=== PATIENT | male | born 1990 | race Caucasian/White ===

== ENCOUNTER 2017-09-21 08:52 | Emergency (ER) | payer SELFPAY ==
[2017-09-21] MEDS ORDERED: ONDANSETRON 4 MG TAB.RAPDIS PO ONE (09:36)
[2017-09-21] MEDS ORDERED: NORMAL SALINE 1000 ML 1,000 ML IV ONE (09:36)
--- NOTE | 2017-09-21 09:41 | ER Document Report ---
ED General - General Chief Complaint: Vomiting/Diarrhea Stated Complaint: DIZZY,VOMITING Time Seen by Provider: 09/21/17 09:34 - HPI Patient complains to provider of: Nausea vomiting dizziness Notes: Patient coming for nausea vomiting dizziness ongoing since Thursday. Patient states vomiting multiple times a coworkers at work also vomiting. Patient denies any recent antibiotics denies any recent travel. Patient resting comfortably upon my evaluation states dizziness when moving around. Patient otherwise looks to be in no obvious distress. - Related Data Allergies/Adverse Reactions: naproxen [From Naprosyn] Allergy (Verified 09/21/17 08:55) Past Medical History - Social History Smoking Status: Current Every Day Smoker Chew tobacco use (# tins/day): No Frequency of alcohol use: None Drug Abuse: None Family History: Reviewed & Not Pertinent Patient has suicidal ideation: No Patient has homicidal ideation: No Renal/ Medical History: Denies: Hx Peritoneal Dialysis Review of Systems - Review of Systems Constitutional: No symptoms reported EENT: No symptoms reported Cardiovascular: No symptoms reported Respiratory: No symptoms reported Gastrointestinal: Diarrhea, Nausea - Dizziness, Vomiting Genitourinary: No symptoms reported Male Genitourinary: No symptoms reported Musculoskeletal: No symptoms reported Skin: No symptoms reported Hematologic/Lymphatic: No symptoms reported Neurological/Psychological: No symptoms reported -: Yes All other systems reviewed and negative Physical Exam - Vital signs Vitals: Temp Pulse Resp BP Pulse Ox 97.9 F 83 18 155/94 H 100 09/21/17 08:57 09/21/17 08:57 09/21/17 08:57 09/21/17 08:57 09/21/17 08:57 Interpretation: Normal - General General appearance: Appears well, Alert - HEENT Head: Normocephalic, Atraumatic Eyes: Normal Pupils: PERRL - Respiratory Respiratory status: No respiratory distress Chest status: Nontender Breath sounds: Normal Chest palpation: Normal - Cardiovascular Rhythm: Regular Heart sounds: Normal auscultation Murmur: No - Abdominal Inspection: Normal Distension: No distension Bowel sounds: Normal Tenderness: Nontender Organomegaly: No organomegaly - Back Back: Normal, Nontender - Extremities General upper extremity: Normal inspection, Nontender, Normal color, Normal ROM , Normal temperature General lower extremity: Normal inspection, Nontender, Normal color, Normal ROM , Normal temperature, Normal weight bearing. No: Gladis's sign - Neurological Neuro grossly intact: Yes Cognition: Normal Orientation: AAOx4 Milli Coma Scale Eye Opening: Spontaneous Milli Coma Scale Verbal: Oriented Milli Coma Scale Motor: Obeys Commands [place] Coma Scale Total: 15 Speech: Normal Motor strength normal: LUE, RUE, LLE, RLE Sensory: Normal - Psychological Associated symptoms: Normal affect, Normal mood - Skin Skin Temperature: Warm Skin Moisture: Dry Skin Color: Normal Course - Re-evaluation Re-evalutation: 09/21/17 11:03 The patient presents with n/v/d without signs of peritonitis or other life- threatening or serious etiology. The patient appears stable for discharge and has been instructed to return immediately if the symptoms worsen in any way, or in 8-12hr if not improved for re-evaluation. The patient has been instructed to return if the symptoms worsen or change in any way. - Vital Signs Vital signs: Temp Pulse Resp BP Pulse Ox 98.5 F 76 16 139/99 H 100 09/21/17 11:07 09/21/17 11:07 09/21/17 11:07 09/21/17 11:07 09/21/17 11:07 - Laboratory Result Diagrams: 09/21/17 09:48 Laboratory results interpreted by me: 09/21/17 09:48 AST 61 H Total Protein 8.3 H Albumin 5.1 H Discharge - Discharge Clinical Impression: Nausea vomiting and diarrhea, Dehydration Condition: Good Disposition: HOME, SELF-CARE Instructions: Clear Liquid Diet ([facility]), Dehydration ([facility]), Dizziness ([facility]), Gastroenteritis (adult) ([facility]) Additional Instructions: Your evaluation is consistent with a viral GI illness. Would recommend clear liquid diet for the next 12 hours then advancing as tolerated would recommend eating yogurt to help out with the diarrhea. Return to ER symptoms worsen. I will prescribe you Zofran for your nausea and Phenergan you do not have to get both of these filled try 1 the other one is for backup. Would recommend taking Tylenol Motrin for pain control. Follow-up with your primary care physician. Prescriptions: Ondansetron [Zofran Odt 4 mg Tablet] 4 mg PO Q4HP PRN #30 tab.rapdis PRN Reason: Promethazine HCl [Phenergan 25 mg Tablet] 25 - 50 mg PO ASDIR PRN #30 tablet PRN Reason: Forms: Return to Work
[2017-09-21 11:00] LABS: ALANINE AMINOTRANSFERASE 35 U/L (21-72); ALBUMIN 5.1 g/dL (3.5-5.0); ALKALINE PHOSPHATASE 71 U/L (38-126); ANION GAP 13 (5-19); ASPARTATE AMINO TRANSFERASE 61 U/L (17-59); BILIRUBIN,DIRECT 0.4 mg/dL (0.0-0.4); BILIRUBIN,TOTAL 0.9 mg/dL (0.2-1.3); BLOOD UREA NITROGEN 15 mg/dL (7-20); CALCIUM 9.9 mg/dL (8.4-10.2); CARBON DIOXIDE 26 mmol/L (22-30); CHLORIDE 104 mmol/L (98-107); GLUCOSE 93 mg/dL (75-110); LIPASE 120.7 U/L (23-300); POTASSIUM 4.4 mmol/L (3.6-5.0); SODIUM 142.6 mmol/L (137-145); TOTAL PROTEIN 8.3 g/dL (6.3-8.2)
[2017-09-21 11:12] VITALS: BP 139/99
== END 2017-09-21 11:12 | disposition home or self-care (01) ==
LOC: ER 08:52
DX: R11.2 Nausea with vomiting, unspecified (principal); R19.7 Diarrhea, unspecified; E86.0 Dehydration; R42 Dizziness and giddiness; F17.200 Nicotine dependence, unspecified, uncomplicated; Z88.8 Allergy status to other drugs, medicaments and biological substances
CPT/HCPCS: 99284; 96360; 36415; 83690; 80053; S0119; J7030

== ENCOUNTER 2018-12-23 07:51 | Emergency (ER) | payer SELFPAY ==
--- NOTE | 2018-12-23 08:52 | ER Document Report ---
ED General - General Chief Complaint: Rib Pain Stated Complaint: LEFT SIDE RIB PAIN/INJURY Time Seen by Provider: 12/23/18 08:48 Primary Care Provider: CHIP JORDAN MD [ACTIVE PROVISIONAL STAFF] - Follow up as needed YOUNG BUSH MD [COMMUNITY BASED STAFF] - Follow up as needed Mode of Arrival: Ambulatory Information source: Patient - HPI Notes: the tthe "28 yr old male presents for c/o of left sided rib pain x 5 days ago after a friend, who weights approx 180 pounds landed on him after play wrestling, reports friends elbow hit in his the rib on the left. reports pain with deep breaths, sneezing or coughing. no otc meds tried. denies bleeding disorders. pain is 6/10, sharp and worse with time. has not followed up with his pcp. Denies fevers, chills, chest pain,palpitations, shortness of breath, dyspnea, nausea, vomiting, diarrhea, abdominal pain, hematuria,blurred vision, double vision, loss of vision, speech changes, LH, dizziness, syncope, headaches, wheezing, ST, URI, neck pain, weakness, bowel or bladder dysfunction, saddle anesthesia, numbness or tingling in bilateral upper or lower extremities equally, muscle paralysis, weakness in bilateral upper or lower extremities equally or rash. - Related Data Allergies/Adverse Reactions: naproxen [From Naprosyn] Allergy (Verified 09/21/17 08:55) Past Medical History - General Information source: Patient - Social History Smoking Status: Unknown if Ever Smoked Lives with: Spouse/Significant other Family History: Reviewed & Not Pertinent Patient has suicidal ideation: No Patient has homicidal ideation: No Renal/ Medical History: Denies: Hx Peritoneal Dialysis Review of Systems - Review of Systems Constitutional: No symptoms reported EENT: No symptoms reported Cardiovascular: No symptoms reported Respiratory: See HPI Gastrointestinal: No symptoms reported Genitourinary: No symptoms reported Male Genitourinary: No symptoms reported Musculoskeletal: No symptoms reported Skin: No symptoms reported Hematologic/Lymphatic: No symptoms reported Neurological/Psychological: No symptoms reported Physical Exam - Vital signs Vitals: Temp Pulse Resp BP Pulse Ox 98.2 F 91 16 134/94 H 98 12/23/18 07:58 12/23/18 07:58 12/23/18 07:58 12/23/18 07:58 12/23/18 07:58 - Notes Notes: PHYSICAL EXAMINATION:reviewed vital signs by RN GENERAL: Well-appearing, well-nourished and in no acute distress. HEAD: Atraumatic, normocephalic. EYES: Pupils equal round and reactive to light, extraocular movements intact, sclera anicteric, conjunctiva are normal. ENT: Nares patent, oropharynx clear without exudates. Moist mucous membranes. NECK: Normal range of motion, supple without lymphadenopathy LUNGS: Breath sounds clear to auscultation bilaterally and equal. No wheezes rales or rhonchi. tenderness to left 5th-8th rib intercostal area. no ecchymosis, step off noted. HEART: Regular rate and rhythm without murmurs ABDOMEN: Soft, nontender, nondistended abdomen. No guarding, no rebound. No masses appreciated. no cva tenderness bilaterally Musculoskeletal: Normal range of motion, no pitting or edema. No cyanosis. NEUROLOGICAL: Cranial nerves grossly intact. Normal speech, normal gait. Normal sensory, motor exams PSYCH: Normal mood, normal affect. SKIN: Warm, Dry, normal turgor, no rashes or lesions noted. Course - Re-evaluation Re-evalutation: 12/23/18 19:28 afebrile, vss, in no acute distress. nurses notes reviewed. Patient presents after falling onto their ribs, complaining of focal pain to the affected area. No tachypnea or hypoxemia at time of arrival. Pain controlled here in the emergency department with oral pain medication Chest x-ray without evidence of acute fracture, pneumothorax or pulmonary contusion. labs obtained since pt states that he has hasnt been eating as much due to pain, but did not want to be prescribed narcotics. cbc negative for leukocytosis or anemai, cmp negative for renal or liver dysfuction, no electrolyte disburbances, cogas normal. At this time will discharge with return precautions and follow-up recommendations. Verb al discharge instructions given at the bedside and opportunity for questions given. Medication warnings reviewed. Patient is in agreement with this plan and has verbalized understanding of return precautions and the need for primary care follow-up in the next 24-72 hours. - Vital Signs Vital signs: Temp Pulse Resp BP Pulse Ox 98.1 F 90 16 122/88 H 98 12/23/18 11:32 12/23/18 11:32 12/23/18 07:58 12/23/18 11:32 12/23/18 11:32 - Laboratory Result Diagrams: 12/23/18 09:30 12/23/18 09:30 Laboratory results interpreted by me: 12/23/18 12/23/18 09:30 09:30 Baso % (Auto) 2.5 H AST 83 H Discharge - Discharge Clinical Impression: Acute costochondritis, Rib contusion Condition: Stable Disposition: HOME, SELF-CARE Instructions: Costochondritis ([facility]), Rib Contusion ([facility]) Additional Instructions: Return immediately for any new or worsening symptoms. Follow up with primary care provider, call tomorrow to make followup appointment. Prescriptions: Acetaminophen [Pain Relief] 975 mg PO Q6HP PRN #20 tablet PRN Reason: Forms: Return to Work Referrals: YOUNG BUSH MD [COMMUNITY BASED STAFF] - Follow up as needed CHIP JORDAN MD [ACTIVE PROVISIONAL STAFF] - Follow up as needed
--- NOTE | 2018-12-23 09:39 | RADIOLOGY REPORT (SQ) ---
EXAM DESCRIPTION: RIBS LEFT W/PA CHEST COMPLETED DATE/TIME: 12/23/2018 9:20 am REASON FOR STUDY: bone tenderness COMPARISON: None. TECHNIQUE: Frontal view of the chest and additional views of the left ribs acquired. NUMBER OF VIEWS: Five view. LIMITATIONS: None. FINDINGS: FRONTAL CXR: No pneumothorax. No pleural effusion. No atelectasis or infiltrates. RIBS: No displaced rib fractures. No lytic or blastic bony lesions. OTHER: No other significant finding. IMPRESSION: NO PNEUMOTHORAX. NO DISPLACED RIB FRACTURES. COMMENT: SITE OF TRAUMA/COMPLAINT MARKED/STAMP COMPLETED: NO. TECHNICAL DOCUMENTATION: JOB ID: [id number] [employer]- All Rights Reserved Reading location - IP/workstation name: [email or web address]
[2018-12-23 09:42] LABS: ABSOLUTE BASOPHILS # (AUTO) 0.1 10^3/uL (0.0-0.2); ABSOLUTE EOSINOPHILS # (AUTO) 0.2 10^3/uL (0.0-0.6); ABSOLUTE LYMPHOCYTES (AUTO) 1.1 10^3/uL (0.5-4.7); ABSOLUTE MONOCYTES (AUTO) 0.6 10^3/uL (0.1-1.4); ABSOLUTE NEUT (AUTO) 2.8 10^3/uL (1.7-8.2); BASOPHILS % (AUTO) 2.5 % (0-2); EOSINOPHILS % (AUTO) 4.3 % (0-6); HEMATOCRIT 46.5 % (37.9-51.0); HEMOGLOBIN 15.8 g/dL (13.5-17.0); LYMPHOCYTES % (AUTO) 22.7 % (13-45); MEAN CORPUSCULAR HEMOGLOBIN 31.9 pg (27.0-33.4); MEAN CORPUSCULAR VOLUME 94 fl (80-97); MONOCYTES % (AUTO) 12.9 % (3-13); PLATELET COUNT 233 10^3/uL (150-450); RED BLOOD COUNT 4.95 10^6/uL (4.35-5.55); RED CELL DISTRIBUTION WIDTH 12.9 % (11.5-14.0); SEGMENTED NEUTROPHILS % (AUTO) 57.6 % (42-78); TOTAL CELLS COUNTED % (AUTO) 100 %; WHITE BLOOD COUNT 4.8 10^3/uL (4.0-10.5)
[2018-12-23 09:45] LABS: INTERNATIONAL RATION (INR) 0.93; PROTHROMBIN TIME 12.5 SEC (11.4-15.4)
[2018-12-23 09:46] LABS: PARTIAL THROMBOPLASTIN TIME 27.8 SEC (23.5-35.8)
[2018-12-23 10:02] LABS: ALBUMIN 4.7 g/dL (3.5-5.0); ALKALINE PHOSPHATASE 73 U/L (38-126); ANION GAP 11 (5-19); ASPARTATE AMINO TRANSFERASE 83 U/L (17-59); BILIRUBIN,DIRECT 0.2 mg/dL (0.0-0.4); BILIRUBIN,TOTAL 0.9 mg/dL (0.2-1.3); BLOOD UREA NITROGEN 13 mg/dL (7-20); CALCIUM 9.9 mg/dL (8.4-10.2); CARBON DIOXIDE 26 mmol/L (22-30); CHLORIDE 101 mmol/L (98-107); GLUCOSE 86 mg/dL (75-110); POTASSIUM 4.2 mmol/L (3.6-5.0); TOTAL PROTEIN 7.3 g/dL (6.3-8.2)
[2018-12-23] MEDS ORDERED: HYDROCODONE/ACETAMINOPHEN 5-325 MG (6 TAB/ER DISP) PO PRN (11:26)
[2018-12-23] MEDS ORDERED: ACETAMINOPHEN 325 MG TABLET PO ONE (11:27)
[2018-12-23 11:35] VITALS: BP 122/88
== END 2018-12-23 11:45 | disposition home or self-care (01) ==
LOC: ER 07:51
DX: S20.20XA Contusion of thorax, unspecified, initial encounter (principal); M94.0 Chondrocostal junction syndrome [Tietze]; R07.81 Pleurodynia; W50.0XXA Accidental hit or strike by another person, initial encounter; Y93.72 Activity, wrestling; Z88.8 Allergy status to other drugs, medicaments and biological substances
CPT/HCPCS: 36415; 80053; 85025; 85610; 85730; 99283

== ENCOUNTER 2019-02-24 12:47 | Emergency (ER) | payer SELFPAY ==
[2019-02-24 12:51] VITALS: BP 115/99
== END 2019-02-24 13:00 | disposition left against medical advice (07) ==
LOC: ER 12:47
DX: Z53.21 Procedure and treatment not carried out due to patient leaving prior to being seen by health care provider (principal)

== ENCOUNTER 2019-03-14 12:40 | Observation (INO) | payer SELFPAY ==
[~2019-03-14 12:40] MED LIST: DEXAMETHASONE SOD PHOSPHATE INJ 4 MG/1 ML VIAL ONE; GLYCOPYRROLATE 1 MG/5 ML VIAL ONE; KETOROLAC TROMETHAMINE 60 MG/2 ML SDV ONE; LIDOCAINE 2% INJ-PF (20 MG/ML) 2 ML AMPUL ONE; METOCLOPRAMIDE HCL INJ/PF 10 MG/2 ML SDV ONE; NEOSTIGMINE METHYLSULFATE 10 MG/10 ML VIAL ONE; ONDANSETRON HCL INJ/PF 4 MG/2 ML SDV ONE; ROCURONIUM BROMIDE INJ 50 MG/5 ML VIAL IV ONE; SUCCINYLCHOLINE CHLORIDE INJ 200 MG/10 ML VIAL ONE
[2019-03-14] MEDS ORDERED: ONDANSETRON HCL INJ/PF 4 MG/2 ML SDV IV ONE (13:09)
[2019-03-14] MEDS ORDERED: MORPHINE SULFATE 10 MG/ML INJ IV ONE (13:09)
--- NOTE | 2019-03-14 13:09 | ER Document Report ---
ED Medical Screen (RME) - General Chief Complaint: Abdominal Pain Stated Complaint: ABDOMINAL PAIN Time Seen by Provider: 03/14/19 13:05 - HPI Notes: 03/14/19 13:08 Patient is a 28-year-old male complaining of severe right upper quadrant abdominal pain that he believes his gallbladder. Patient states he was told that his gallbladder issues, but has not been able to afford medications that he was given at a previous hospital for it. Patient states that he has had nausea and vomiting and decreased p.o. intake. No fever. I have treated and performed a rapid initial assessment of this patient. A comprehensive ED assessment and evaluation of the patient, analysis of test results and completion of medical decision making process will be conducted by additional ED providers. PHYSICAL EXAMINATION: GENERAL: no acute distress. A&Ox4. Answers questions appropriately. Patient does appear uncomfortable. Abdomen: There is tenderness noted to the epigastrium and right upper quadrant. - Related Data Allergies/Adverse Reactions: naproxen [From Naprosyn] Allergy (Verified 03/14/19 13:07) Past Medical History Renal/ Medical History: Denies: Hx Peritoneal Dialysis Physical Exam - Vital signs Vitals: Temp Pulse Resp BP Pulse Ox 98.0 F 92 20 147/111 H 100 03/14/19 12:57 03/14/19 12:57 03/14/19 12:57 03/14/19 12:57 03/14/19 12:57 Course - Vital Signs Vital signs: Temp Pulse Resp BP Pulse Ox 98.0 F 92 20 147/111 H 100 03/14/19 12:57 03/14/19 12:57 03/14/19 12:57 03/14/19 12:57 03/14/19 12:57
[2019-03-14] MEDS ORDERED: NORMAL SALINE 1000 ML 1,000 ML IV ONE (13:10)
[2019-03-14] MEDS ORDERED: ONDANSETRON HCL INJ/PF 4 MG/2 ML SDV ONE (13:26)
--- NOTE | 2019-03-14 13:51 | ER Document Report ---
ED GI/ - General Chief Complaint: Abdominal Pain Stated Complaint: ABDOMINAL PAIN Time Seen by Provider: 03/14/19 13:05 Primary Care Provider: DEB KAUR MD [Primary Care Provider] - Follow up as needed Notes: CHIEF COMPLAINT: Right Upper quadrant pain HPI: 28-year-old male presenting to the emergency department for evaluation of severe right upper quadrant pain. Patient states he has had a constant level of discomfort in the right upper quadrant of the last several months, much worse with eating. Patient states he has lost 15 pounds in the last several months. Patient states the pain became worse in the last week, he went to the emergency department in [place], states they did an ultrasound that was negative for stones but his liver enzymes were all elevated. Patient states the pain became much worse again today causing him to present to the emergency department. He did not follow-up with gastroenterology after his visit to [place]. has not had fever. Patient states that he also has a history of high blood pressure, takes clonidine as needed for this. Does not have chest pain ROS: See HPI - all other systems were reviewed and are otherwise negative Constitutional: no fever Eyes: no drainage, no blurred vision ENT: no runny nose, no sore throat Cardiovascular: no chest pain Resp: no SOB, no cough GI: + vomiting, no diarrhea, + abdominal pain : no dysuria Integumentary: no rash Allergy: no hives Musculoskeletal: no extremity pain or swelling Neurological: no numbness/tingling, no weakness MEDICATIONS: I agree with the patient medications as charted by the RN. ALLERGIES: I agree with the allergies as charted by the RN. PAST MEDICAL HISTORY/PAST SURGICAL HISTORY: Reviewed and agree as charted by RN. SOCIAL HISTORY: Reviewed and agree as charted by RN. FAMILY HISTORY: No significant familial comorbid conditions directly related to patient complaint EXAM: Reviewed vital signs as charted by RN. CONSTITUTIONAL: Alert and oriented and responds appropriately to questions. Well-appearing; well-nourished, moderate distress secondary to pain HEAD: Normocephalic; atraumatic EYES: PERRL; Conjunctivae clear, sclerae non-icteric ENT: normal nose; no rhinorrhea; moist mucous membranes; pharynx without lesions noted, no uvula edema or deviation, no tonsillar hypertrophy, phonation normal NECK: Supple without meningismus; non-tender; no cervical lymphadenopathy, no masses CARD: RRR; no murmurs, no clicks, no rubs, no gallops; symmetric distal pulses RESP: Normal chest excursion without splinting or tachypnea; breath sounds clear and equal bilaterally; no wheezes, no rhonchi, no rales, pulse oximetry ABD/GI: Normal bowel sounds; non-distended; soft, moderate tenderness with guarding in the right upper quadrant, positive Joseph sign; no palpable organomegaly or masses. BACK: The back appears normal and is non-tender to palpation, there is no CVA tenderness EXT: Normal ROM in all joints; non-tender to palpation; no cyanosis, no effusions, no edema SKIN: Normal color for age and race; warm; dry; good turgor; no acute lesions noted NEURO: Moves all extremities equally; Motor and sensory function intact PSYCH: The patient's mood and manner are appropriate. Grooming and personal hygiene are appropriate. MDM: 28-year-old male presenting with several months of right upper quadrant pain especially with eating. States he had negative imaging study of the right upper quadrant a week ago at [place] emergency department. States his liver functions were elevated. Patient screened through the triage process, initial labs and repeat ultrasound ordered today. Pain medications and nausea medications ordered. Will await results to reassess, patient may need HIDA scan. discussed with Dr. Holloway, ER attending TRAVEL OUTSIDE OF THE [place] IN LAST 30 DAYS: No - Related Data Allergies/Adverse Reactions: naproxen [From Naprosyn] Allergy (Verified 03/14/19 13:07) Past Medical History - Social History Smoking Status: Current Every Day Smoker Chew tobacco use (# tins/day): No Frequency of alcohol use: Occasional Drug Abuse: None Family History: Reviewed & Not Pertinent Patient has suicidal ideation: No Patient has homicidal ideation: No Renal/ Medical History: Denies: Hx Peritoneal Dialysis Physical Exam - Vital signs Vitals: Temp Pulse Resp BP Pulse Ox 98.0 F 92 20 147/111 H 100 03/14/19 12:57 03/14/19 12:57 03/14/19 12:57 03/14/19 12:57 03/14/19 12:57 Course - Re-evaluation Re-evalutation: 03/14/19 15:09 Patient remains moderately uncomfortable on reexamination with tenderness in the right upper quadrant. Case discussed with attending, discussed with Dr. Hernandez, Surgery management. We discussed labs and imaging studies. He indicates that he will come down and see the patient to determine a management plan 03/14/19 15:[address] Hernandez. He will admit for cholecystectomy 03/14/19 15:46 - Vital Signs Vital signs: Temp Pulse Resp BP Pulse Ox 98.0 F 92 21 H 143/96 H 98 03/14/19 12:57 03/14/19 12:57 03/14/19 15:01 03/14/19 15:00 03/14/19 15:01 - Laboratory Result Diagrams: 03/14/19 13:45 03/14/19 13:45 Laboratory results interpreted by me: 03/14/19 03/14/19 13:45 13:45 RDW 14.2 H Sodium 135.2 L Chloride 97 L BUN 21 H Creatinine 1.27 H Calcium 10.3 H Total Bilirubin 1.6 H Direct Bilirubin 0.7 H AST 192 H Alkaline Phosphatase 143 H Discharge - Discharge Clinical Impression: Cholecystitis Condition: Stable Disposition: ADMITTED INPATIENT Admitting Provider: Surgicalist - [facility] Admitted: Surgical Floor Referrals: DEB KAUR MD [Primary Care Provider] - Follow up as needed
[2019-03-14 13:58] LABS: ABSOLUTE BASOPHILS # (AUTO) 0.1 10^3/uL (0.0-0.2); ABSOLUTE LYMPHOCYTES (AUTO) 2.4 10^3/uL (0.5-4.7); ABSOLUTE MONOCYTES (AUTO) 0.8 10^3/uL (0.1-1.4); ABSOLUTE NEUT (AUTO) 4.7 10^3/uL (1.7-8.2); BASOPHILS % (AUTO) 1.5 % (0-2); EOSINOPHILS % (AUTO) 0.5 % (0-6); HEMATOCRIT 43.5 % (37.9-51.0); HEMOGLOBIN 15.4 g/dL (13.5-17.0); LYMPHOCYTES % (AUTO) 30.1 % (13-45); MEAN CORPUSCULAR HGB CONC 35.3 g/dL (32.0-36.0); MEAN CORPUSCULAR VOLUME 93 fl (80-97); MONOCYTES % (AUTO) 9.6 % (3-13); PLATELET COUNT 301 10^3/uL (150-450); RED BLOOD COUNT 4.66 10^6/uL (4.35-5.55); RED CELL DISTRIBUTION WIDTH 14.2 % (11.5-14.0); SEGMENTED NEUTROPHILS % (AUTO) 58.3 % (42-78); TOTAL CELLS COUNTED % (AUTO) 100 %
[2019-03-14 14:19] LABS: ALBUMIN 4.5 g/dL (3.5-5.0); ALKALINE PHOSPHATASE 143 U/L (38-126); ANION GAP 15 (5-19); ASPARTATE AMINO TRANSFERASE 192 U/L (17-59); BILIRUBIN,DIRECT 0.7 mg/dL (0.0-0.4); BILIRUBIN,TOTAL 1.6 mg/dL (0.2-1.3); BLOOD UREA NITROGEN 21 mg/dL (7-20); CALCIUM 10.3 mg/dL (8.4-10.2); CARBON DIOXIDE 23 mmol/L (22-30); CHLORIDE 97 mmol/L (98-107); GLUCOSE 90 mg/dL (75-110); POTASSIUM 4.5 mmol/L (3.6-5.0); TOTAL PROTEIN 8.1 g/dL (6.3-8.2)
--- NOTE | 2019-03-14 14:32 | RADIOLOGY REPORT (SQ) ---
EXAM DESCRIPTION: U/S ABDOMEN LIMITED W/O DOP COMPLETED DATE/TIME: 03/14/2019 2:18 pm REASON FOR STUDY: RUQ pain COMPARISON: None. TECHNIQUE: Dynamic and static grayscale images acquired of the abdomen and recorded on PACS. Additio nal selected color Doppler and spectral images recorded. LIMITATIONS: None. FINDINGS: PANCREAS: No masses. Visualized pancreatic duct normal caliber. LIVER: Normal size Mild fatty infiltration. No focal masses. LIVER VASCULATURE: Normal directional flow of the main portal vein and hepatic veins. GALLBLADDER: The gallbladder is slightly distended measured at 9.85 cm. No wall thickening. No ston es or pericholecystic edema. ULTRASOUND-DETECTED SAINZ'S SIGN: Negative. INTRAHEPATIC DUCTS AND COMMON DUCT: CBD and intrahepatic ducts normal caliber. No filling defects. AORTA: No aneurysm. RIGHT KIDNEY: Normal size. Normal echogenicity. No solid or suspicious masses. There is a simpl e cyst off the superior pole measured just under 2 cm. No hydronephrosis. No calcifications. PERITONEAL AND RIGHT PLEURAL SPACE: No ascites or effusions. OTHER: No other significant findings. IMPRESSION: NORMAL RIGHT UPPER QUADRANT ULTRASOUND VISUALIZED. TECHNICAL DOCUMENTATION: JOB ID: [id number] [employer]- All Rights Reserved Reading location - IP/workstation name: [email or web address]
[2019-03-14 15:45] LABS: APPEARANCE,URINE CLEAR; BILIRUBIN,URINE NEGATIVE (NEGATIVE); COLOR,URINE YELLOW; GLUCOSE, URINE NEGATIVE (NEGATIVE); KETONES,URINE NEGATIVE (NEGATIVE); PROTEIN,URINE 100 mg/dL (NEGATIVE); URINE SPECIFIC GRAVITY 1.024; UROBILINOGEN,URINE NEGATIVE mg/dL (<2.0)
--- NOTE | 2019-03-14 15:59 | PDOC H&P ---
History of Present Illness Admission Date/PCP: DEB KAUR MD Patient complains of: Abdominal pain History of Present Illness: TANIA MEDINA is a 28 year old male Presents emergency department via ground rescue complaining of abdominal pain, nausea, anorexia and diarrhea. Symptoms have been exacerbating over the last several weeks. In retrospect the patient is been having abdominal pain right upper quadrant for months. He was seen at [facility] in January, [place] emergency department earlier this month for similar symptoms. He was told he had elevated liver function studies. Multiple gallbladder ultrasounds were interpreted as normal, no gallstones. He is seen today the emergency department he is found to have right upper quadrant tenderness, pain refractory to narcotics. Repeat ultrasound showed a dilated gallbladder, normal biliary duct system. Liver function studies slightly elevated. Surgery was consulted, patient evaluated emergency department, felt to have acute cholecystitis and was advised admission for definitive management. Of note patient denies history of pancreatitis. He does drink alcohol every other day. Past Medical History Past Medical History: Take care hypertension, uncontrolled; alcohol use; anxiety and depression Cardiac Medical History: Reports: Hypertension Past Surgical History Past Surgical History: Reports: Tonsillectomy Social History Smoking Status: Current Every Day Smoker Electronic Cigarette use?: No Family History Family History: None, Reviewed & Not Pertinent, Other - Gallbladder disease in father Parental Family History Reviewed: Yes Children Family History Reviewed: Yes Sibling(s) Family History Reviewed.: Yes Medication/Allergy Allergies/Adverse Reactions: naproxen [From Naprosyn] Allergy (Verified 03/14/19 13:07) Review of Systems Constitutional: PRESENT: as per HPI, weakness, weight loss - 15 pounds last several months Eyes: ABSENT: visual disturbances Ears: PRESENT: other - Has ear hardware known as gauges Respiratory: PRESENT: cough Gastrointestinal: PRESENT: as per HPI, other - Loose bowel movements, chronic Genitourinary: ABSENT: dysuria, hematuria Musculoskeletal: PRESENT: muscle weakness Integumentary: ABSENT: rash, wounds Neurological: ABSENT: abnormal gait, abnormal speech, confusion, dizziness, focal weakness, syncope Psychiatric: ABSENT: anxiety, depression, homidical ideation, suicidal ideation Physical Exam Vital Signs: Temp Pulse Resp BP Pulse Ox 98.0 F 92 21 H 143/96 H 98 03/14/19 12:57 03/14/19 12:57 03/14/19 15:01 03/14/19 15:00 03/14/19 15:01 Intake & Output 03/13/19 03/14/19 03/15/19 06:59 06:59 06:59 Intake Total 1000 Balance 1000 Weight 73.6 kg General appearance: PRESENT: other - Very anxious thin male in moderate distress Head exam: PRESENT: atraumatic Eye exam: PRESENT: EOMI Mouth exam: PRESENT: dry mucosa Neck exam: PRESENT: full ROM Respiratory exam: PRESENT: rhonchi Cardiovascular exam: PRESENT: tachycardia Pulses: PRESENT: normal carotid pulses, normal radial pulses, normal femoral pulses GI/Abdominal exam: PRESENT: other - Soft, but tender right upper quadrant with moderate guarding Rectal exam: PRESENT: deferred Extremities exam: PRESENT: full ROM Musculoskeletal exam: PRESENT: full ROM Neurological exam: PRESENT: oriented to person, oriented to place, oriented to time, oriented to situation Psychiatric exam: PRESENT: anxious Skin exam: PRESENT: dry Results Laboratory Results: 03/14/19 13:45 03/14/19 13:45 03/14/19 03/14/19 13:45 13:45 WBC 8.0 RBC 4.66 Hgb 15.4 Hct 43.5 MCV 93 MCH 33.0 MCHC 35.3 RDW 14.2 H Plt Count 301 Seg Neutrophils % 58.3 Sodium 135.2 L Potassium 4.5 Chloride 97 L Carbon Dioxide 23 Anion Gap 15 BUN 21 H Creatinine 1.27 H Est GFR ( Amer) > 60 Glucose 90 Calcium 10.3 H Total Bilirubin 1.6 H AST 192 H Alkaline Phosphatase 143 H Total Protein 8.1 Albumin 4.5 Lipase 134.8 Impressions: Abdomen Ultrasound 03/14/19 13:09 IMPRESSION: NORMAL RIGHT UPPER QUADRANT ULTRASOUND VISUALIZED. Assessment & Plan - Diagnosis (1) Acute cholecystitis Is this a current diagnosis for this admission?: Yes Plan: Impression: Acute superimposed on chronic right upper quadrant pain, tenderness, weakness anorexia, elevated liver function studies and gallbladder ultrasonogra phy showing dilated gallbladder consistent with acute cholecystitis. Patient also dehydrated. Elevated liver function studies may be secondary to underlying liver dysfunction, or even retained common bile duct stone, the latter less likely. Recommendations: 1. Will admit, keep n.p.o. on IV fluids intravenous antibiotics 2. I believe the patient is suffering from cholecystitis and would benefit from interval cholecystectomy. Therefore we plan for interval laparoscopic, open cholecystectomy possible, with intraoperative cholangiography, Dr. Hernandez, today. The mechanics of the operation, as well as an explanation for the risk benefits and alternatives, as well as likely postoperative expectations all discussed with patient and significant other. 3. Patient understands that symptoms and laboratory abnormalities may be due to underlying liver disease, or even a retained common bile duct stone, although less likely. Patient will intervention may be required 4. I have consulted hospitalist service to assist with management of hypertension, historically uncontrolled, and anxiety and depression as needed. (2) Hypertension, uncontrolled Is this a current diagnosis for this admission?: Yes (3) Dehydration Is this a current diagnosis for this admission?: Yes (4) Abuse of smoked substance Is this a current diagnosis for this admission?: Yes (5) Alcohol abuse Is this a current diagnosis for this admission?: Yes (6) Elevated LFTs Is this a current diagnosis for this admission?: Yes (7) Anxiety Is this a current diagnosis for this admission?: Yes (8) Depression Is this a current diagnosis for this admission?: Yes - Time Time Spent: 50 to 70 Minutes Critical Time spent with patient: 15-24 minutes Medications reviewed and adjusted accordingly: Yes Anticipated discharge: Home - Inpatient Certification Based on my medical assessment, after consideration of the patient's comorbidities, presenting symptoms, or acuity I expect that the services needed warrant INPATIENT care.: Yes I certify that my determination is in accordance with my understanding of Medicare's requirements for reasonable and necessary INPATIENT services [42 CFR 412.3e].: Yes Medical Necessity: Need For IV Fluids, Need for Pain Control, Need for IV Antibiotics, Need for Surgery
[2019-03-14] MEDS ORDERED: NORMAL SALINE 1000 ML 1,000 ML IV PRN (16:01)
[2019-03-14] MEDS ORDERED: BUPIVACAINE HCL 0.25 % INJ/PF (2.5 MG/1 ML) 30 ML VIAL ONE (16:02)
[2019-03-14] MEDS ORDERED: AMPICILLIN SOD/SULBACTAM 1.5 GM VIAL ONE (16:27)
[2019-03-14] MEDS ORDERED: HYDROMORPHONE HCL INJ/PF 2 MG/ML AMPULE ONE (16:37)
[2019-03-14] MEDS ORDERED: MIDAZOLAM 2 MG/2 ML INJ ONE (16:37)
[2019-03-14] MEDS ORDERED: PROPOFOL INJ 200 MG/20 ML VIAL IV ONE (16:38)
[2019-03-14] MEDS ORDERED: MEPERIDINE HCL/PF INJ 25 MG/1 ML DISP.SYRIN IV PRN (17:13)
[2019-03-14] MEDS ORDERED: FENTANYL CITRATE INJ/PF 100 MCG/2 ML AMPUL IV PRN ×3 (17:13)
[2019-03-14] MEDS ORDERED: OXYCODONE-ACETAMINOPHEN 5-325 MG TABLET PO PRN ×2 (17:13)
[2019-03-14] MEDS ORDERED: ONDANSETRON HCL INJ/PF 4 MG/2 ML SDV IV PRN ×2 (17:13→18:01)
[2019-03-14] MEDS ORDERED: DIPHENHYDRAMINE HCL 50 MG/ML VIAL IV PRN (17:13)
[2019-03-14] MEDS ORDERED: PROMETHAZINE HCL INJ 25 MG/1 ML VIAL IV PRN ×2 (17:13)
--- NOTE | 2019-03-14 17:59 | Operative Report ---
Operative Report DATE OF SURGERY: 03/14/19 PREOPERATIVE DIAGNOSIS: 1. Acute cholecystitis. 2. Elevated liver function s tudies. 3. History of smoking, alcohol POSTOPERATIVE DIAGNOSIS: Same with. 1. Mild-moderate acute cholecystitis. 2. Normal intraoperative cholangiogram OPERATION: 1. Laparoscopic cholecystectomy. 2. Intraoperative cholangiography. 3. Interpretation of intraoperative cholangiography SURGEON: PAULIE INIGUEZ ANESTHESIA: GA TISSUE REMOVED OR ALTERED: 1 gallbladder COMPLICATIONS: None ESTIMATED BLOOD LOSS: Scant INTRAOPERATIVE FINDINGS: See below PROCEDURE: After obtaining informed consent, the patient was taken to the operating room. General Anesthesia was induced; the arms were extended, and the abdomen was exposed, and prepped and draped in a sterile fashion. Instrumentation was set up for laparoscopic cholecystectomy. Surgical plan and surgical timeout were conducted. A vertical incision was made above the umbilicus, and a verres needle was inserted uneventfully into the peritoneal cavity. Pneumoperitoneum was established. The verres needle was removed and a 5 mm trocar was inserted and a 5 mm flexible laparoscope was inserted. Visualization of the peritoneal cavity confirmed safe uneventful entry. Under direct visualization 3 additional 5 mm ports were established, one in the subxiphoid position and second in the subcostal position. We utilized the graspers to mobilize the gallbladder. Because of the positioning of the gallbladder under the right lobe of the liver with poor exposure to the infundibulum, I felt that a top-down approach would be safest and least troublesome. Therefore we repositioned our graspers, and using the hook dissector, with moderate level of heat, took the gallbladder off of the inferior surface of the liver uneventfully all the way down to the point of its connection with the cystic duct. The cystic artery was dissected out with a right angle clamp, photographed, clipped twice proximally once distally and divided with scissors. Gallbladder was suspended solely by the cystic duct. All final attachments around the junction between the cystic duct and the infundibulum were taken down. A clip was placed across the cystic duct at its point of origination from the gallbladder. An opening was made in the cystic duct with scissors. A tate was made in the skin in the subxiphoid position with 11 blade, and the percutaneous cholangiogram catheter and stylette were threaded through the intra-abdominal wall. The stylette was removed, and the cholangiogram catheter was inserted into the cystic duct aiming it proximally. It was clipped into position, and all instruments were removed We leveled the patient and brought the fluoroscopy unit into position. 10 cc of full-strength iso-view was instilled into the cystic duct. Intraoperative fluoroscopy demonstrated excellent opacification of the common bile duct, common hepatic duct, right and left hepatic ducts. There was no evidence of bile leak. The caliber of the common bile duct was felt to be within normal limits. Co ntrast into the duodenum without resistance. There were no opacities within the biliary duct system. We [place] that this represented a normal cholangiogram. We returned to the peritoneal cavity, removed the clip retaining the cholangiogram catheter, remove the cholangiogram catheter, clipped the cystic duct proximally 2 times, then divided the cystic duct with scissors. The gallbladder was removed from the patient uneventfully at the supraumbilical port site wound. There was no spillage of bile. We returned to the peritoneal cavity check for bleeding, and evidence of bile leak, and there was none. We Confirmed satisfactory placement of clips on cystic duct and cystic artery were secured . At this point we felt the operation was complete. The subcutaneous tissue was then anesthetized with quarter percent Marcaine Sponge and needle counts are correct. All ports removed under direct visualization pneumoperitoneum evacuated, the supraumbilical fascial defect was closed with 0 Vicryl suture and 5 mm port wounds closed with 3-0 Vicryl suture, benzoin and Steri-Strips. The patient was extubated, and taken to the recovery room in stable condition.
--- NOTE | 2019-03-14 17:59 | RADIOLOGY REPORT (SQ) ---
EXAM DESCRIPTION: CHOLANGIOGRAM OPERATIVE; NO CHG FLUORO COMPLETED DATE/TIME: 03/14/2019 5:47 pm REASON FOR STUDY: CHOLANGIOGRAM COMPARISON: None. FLUOROSCOPY TIME: 0.1 minute. 2 images saved to PACS. TECHNIQUE: 2 images were obtained from an intraoperative cholangiogram. LIMITATIONS: None. FINDINGS: There is opacification of the bile ducts, cystic duct remnants and second portion of the d uodenum without evidence of fixed filling defect or significant extravasation. IMPRESSION: INTRAOPERATIVE CHOLANGIOGRAM. COMMENT: Quality ID 145: Final reports for procedures using fluoroscopy that document radiation exp osure indices, or exposure time and number of fluorographic images (if radiation exposure indices are not available) TECHNICAL DOCUMENTATION: JOB ID: [id number] [employer]- All Rights Reserved Reading location - IP/workstation name: [email or web address]
--- NOTE | 2019-03-14 17:59 | RADIOLOGY REPORT (SQ) ---
EXAM DESCRIPTION: CHOLANGIOGRAM OPERATIVE; NO CHG FLUORO COMPLETED DATE/TIME: 03/14/2019 5:47 pm REASON FOR STUDY: CHOLANGIOGRAM COMPARISON: None. FLUOROSCOPY TIME: 0.1 minute. 2 images saved to PACS. TECHNIQUE: 2 images were obtained from an intraoperative cholangiogram. LIMITATIONS: None. FINDINGS: There is opacification of the bile ducts, cystic duct remnants and second portion of the d uodenum without evidence of fixed filling defect or significant extravasation. IMPRESSION: INTRAOPERATIVE CHOLANGIOGRAM. COMMENT: Quality ID 145: Final reports for procedures using fluoroscopy that document radiation exp osure indices, or exposure time and number of fluorographic images (if radiation exposure indices are not available) TECHNICAL DOCUMENTATION: JOB ID: [id number] [employer]- All Rights Reserved Reading location - IP/workstation name: [email or web address]
[2019-03-14] MEDS ORDERED: ACETAMINOPHEN INJ/PF 1000 MG/100 ML SDV IV SCH (18:00)
[2019-03-14] MEDS ORDERED: KETOROLAC TROMETHAMINE 10 MG TABLET PO PRN (18:01)
[2019-03-14] MEDS: FENTANYL CITRATE INJ/PF 100 MCG/2 ML AMPUL ONE ×2 (18:02→18:10)
[2019-03-14] MEDS ORDERED: NORMAL SALINE 1000 ML 1,000 ML with POTASSIUM CHLORIDE 20 MEQ, MAGNESIUM SULFATE 8 MEQ,... IV PRN ×5 (18:12)
--- NOTE | 2019-03-14 18:12 | PDOC CONSULTATION ---
Consultation Consult Date: 03/14/19 Attending physician:: VIKTOR ALCANTAR Provider Consulted: PAULIE INIGUEZ Consult reason:: Medical Managment History of Present Illness Admission Date/PCP: 03/14/19 15:48 DEB KAUR MD History of Present Illness: TANIA MEDINA is a 28 year old male past medical history of untreated hypertension, anxiety, depression, EtOH abuse and tobacco abuse who presented to ED complaining of chronic right upper quadrant abdominal pain nausea, anorexia and diarrhea was diagnosed with acute cholecystitis and admitted by surgical team for cholecystectomy. Saw patient in the recovery room, alert and oriented, planing of right upper quadrant abdominal pain but is stating that is improving since admission. Patient is stating that he has history of hypertension, depression, anxiety and treats them not medically. Past Medical History Cardiac Medical History: Reports: Hypertension Past Surgical History Past Surgical History: Reports: Tonsillectomy Social History Smoking Status: Current Every Day Smoker Electronic Cigarette use?: No Family History Family History: None, Reviewed & Not Pertinent, Other - Gallbladder disease in father Parental Family History Reviewed: Yes Children Family History Reviewed: Yes Sibling(s) Family History Reviewed.: Yes Medication/Allergy Allergies/Adverse Reactions: naproxen [From Naprosyn] Allergy (Verified 03/14/19 13:07) Review of Systems Review of Systems: as per hpi Physical Exam Vital Signs: Temp Pulse Resp BP Pulse Ox 97.8 F 100 18 143/96 H 98 03/14/19 16:12 03/14/19 16:12 03/14/19 16:12 03/14/19 15:00 03/14/19 16:12 Intake & Output 03/13/19 03/14/19 03/15/19 06:59 06:59 06:59 Intake Total 1000 Balance 1000 Weight 73.6 kg General appearance: PRESENT: no acute distress, well-developed, well-nourished Head exam: PRESENT: atraumatic, normocephalic Respiratory exam: PRESENT: clear to auscultation vidhi. ABSENT: rales, rhonchi, wheezes GI/Abdominal exam: PRESENT: normal bowel sounds, tenderness Neurological exam: PRESENT: alert, awake, oriented to person, oriented to place Results Laboratory Results: 03/14/19 13:45 03/14/19 13:45 03/14/19 03/14/19 03/14/19 13:45 13:45 15:20 WBC 8.0 RBC 4.66 Hgb 15.4 Hct 43.5 MCV 93 MCH 33.0 MCHC 35.3 RDW 14.2 H Plt Count 301 Seg Neutrophils % 58.3 Sodium 135.2 L Potassium 4.5 Chloride 97 L Carbon Dioxide 23 Anion Gap 15 BUN 21 H Creatinine 1.27 H Est GFR ( Amer) > 60 Glucose 90 Calcium 10.3 H Total Bilirubin 1.6 H AST 192 H Alkaline Phosphatase 143 H Total Protein 8.1 Albumin 4.5 Lipase 134.8 Urine Color YELLOW Urine Appearance CLEAR Urine pH 7.0 Ur Specific [place] 1.024 Urine Protein 100 H Urine Glucose (UA) NEGATIVE Urine Ketones NEGATIVE Urine Blood NEGATIVE Urine RBC (Auto) 2 Impressions: Cholangiogram 03/14/19 00:00 IMPRESSION: INTRAOPERATIVE CHOLANGIOGRAM. Fluoroscopy 03/14/19 00:00 IMPRESSION: INTRAOPERATIVE CHOLANGIOGRAM. Abdomen Ultrasound 03/14/19 13:09 IMPRESSION: NORMAL RIGHT UPPER QUADRANT ULTRASOUND VISUALIZED. Assessment and Plan - Diagnosis (1) Alcohol abuse Is this a current diagnosis for this admission?: Yes Plan: Alert and oriented. No sign of withdrawal. We will start on D5 NS, folic acid, thiamine, PRN benzodiazepines, DT precautions. (2) Anxiety Is this a current diagnosis for this admission?: Yes Plan: PRN benzodiazepines. Monitor for falls. Monitor for respiratory depression. (3) Dehydration Is this a current diagnosis for this admission?: Yes Plan: Likely due to acute cholecystitis. Continue volume resuscitation guided by volume status. (4) Depression Is this a current diagnosis for this admission?: Yes Plan: Denies any homicidal or suicidal ideation. Will discuss initiation SSRIs once patient is in the floor. Outpatient PCP and psychiatry follow-up. (5) Hypertension, uncontrolled Is this a current diagnosis for this admission?: Yes Plan: Uncontrolled. Untreated. We will start with PRN IV hydralazine and metoprolol. Switch to p.o. once patient is p.o. tolerant. (6) Acute cholecystitis Is this a current diagnosis for this admission?: Yes Plan: Defer management to surgical team. (7) YOANA (acute kidney injury) Is this a current diagnosis for this admission?: Yes Plan: Prerenal. Most likely due to volume depletion caused by GI loss due to nausea and vomiting. Cautious volume restriction guided by volume status. Monitor electrolytes and replace as needed. Avoid nephrotoxic meds.
[2019-03-14] MEDS ORDERED: LORAZEPAM INJ 2 MG/1 ML VIAL IV PRN (18:13)
[2019-03-14] MEDS ORDERED: HYDRALAZINE HCL INJ/PF 20 MG/1 ML SDV IV PRN (18:13)
[2019-03-14] MEDS ORDERED: METOPROLOL TARTRATE PF/INJ 5 MG/5 ML SDV IV PRN (18:13)
[2019-03-14] MEDS ORDERED: MORPHINE SULFATE 10 MG/ML INJ IV PRN (18:15)
[2019-03-14] MEDS ORDERED: MEPERIDINE HCL/PF INJ 25 MG/1 ML DISP.SYRIN ONE (18:20)
[2019-03-14] MEDS ORDERED: HYDRALAZINE HCL INJ/PF 20 MG/1 ML SDV ONE (19:01)
[2019-03-14] MEDS ORDERED: MORPHINE SULFATE 10 MG/ML INJ ONE (19:01)
[2019-03-14] MEDS ORDERED: ACETAMINOPHEN 1,000 MG/100 ML RTUPB IV ONE (19:18)
[2019-03-14] MEDS: ACETAMINOPHEN 1,000 MG/100 ML RTUPB IV SCH (20:03)
[2019-03-14] MEDS: AMPICILLIN SODIUM/SULBACTAM NA 3 GM in NORMAL SALINE 100 ML IV SCH (21:51)
[2019-03-14] MEDS: KETOROLAC TROMETHAMINE INJ/PF 30 MG/1 ML SDV IV PRN (21:51)
[2019-03-15] MEDS: ACETAMINOPHEN 1,000 MG/100 ML RTUPB IV SCH ×3 (00:14→11:23)
[2019-03-15] MEDS: KETOROLAC TROMETHAMINE INJ/PF 30 MG/1 ML SDV IV PRN ×2 (04:23→10:48)
[2019-03-15] MEDS: AMPICILLIN SODIUM/SULBACTAM NA 3 GM in NORMAL SALINE 100 ML IV SCH (05:52)
[2019-03-15 10:35] LABS: ALBUMIN 3.6 g/dL (3.5-5.0); ALKALINE PHOSPHATASE 87 U/L (38-126); ASPARTATE AMINO TRANSFERASE 164 U/L (17-59); BILIRUBIN,DIRECT 0.7 mg/dL (0.0-0.4); BILIRUBIN,TOTAL 1.3 mg/dL (0.2-1.3); TOTAL PROTEIN 6.5 g/dL (6.3-8.2)
[2019-03-15] MEDS ORDERED: NICOTINE 21 MG/24 HR PATCH.TD24 TD SCH (12:00)
--- NOTE | 2019-03-15 12:09 | PDOC DISCHARGE SUMMARY ---
General - Admit/Disc Date/PCP Admission Date/Primary Care Provider: 03/14/19 15:48 DEB KAUR MD Discharge Date: 03/15/19 - Discharge Diagnosis Final Diagnosis: Acute cholecystitis - Assessment Summary: This is a 28-year-old male admitted with acute cholecystitis. Patient underwent surgical intervention yesterday, 03/14/2019. The patient was sent to the floor in stable condition. The patient is doing well on postoperative day #1. He is ambulating, tolerating a diet, and his pain is controlled with oral pain medications. He is afebrile. At this time, it is felt that the patient has reached maximal hospital benefit and is fit for discharge. - Additional Information Resuscitation Status: Full Code Discharge Diet: As Tolerated Discharge Activity: Balance Activity w/Rest, No Lifting Over 10 Pounds Referrals: DEB KAUR MD [Primary Care Provider] - Follow up as needed Home Medications: No Home Medications 03/14/19 Additional Information: Discharge home. Diet as tolerated. Activity: No lifting greater than 10 pounds x 2 weeks. Follow-up with [place] [facility] in 7 to 10 days. Okay to shower starting tomorrow (03/16/2019). Bryan 10/325 mg p.o. every 6 hours PRN for pain. History of Present Illiness History of Present Illness: TANIA MEDINA is a 28 year old male Physical Exam Vital Signs: Temp Pulse Resp BP Pulse Ox 97.9 F 106 H 16 141/88 H 99 03/15/19 11:56 03/15/19 11:56 03/15/19 11:56 03/15/19 07:32 03/15/19 11:56 Intake & Output 03/14/19 03/15/19 03/16/19 06:59 06:59 06:59 Intake Total 2800 Output Total 10 Balance 2790 Weight 79.379 kg Results Laboratory Results: WBC 8.0 10^3/uL (4.0-10.5) 03/14/19 13:45 RBC 4.66 10^6/uL (4.35-5.55) 03/14/19 13:45 Hgb 15.4 g/dL (13.5-17.0) 03/14/19 13:45 Hct 43.5 % (37.9-51.0) 03/14/19 13:45 MCV 93 fl (80-97) 03/14/19 13:45 MCH 33.0 pg (27.0-33.4) 03/14/19 13:45 MCHC 35.3 g/dL (32.0-36.0) 03/14/19 13:45 RDW 14.2 % (11.5-14.0) H 03/14/19 13:45 Plt Count 301 10^3/uL (150-450) 03/14/19 13:45 Lymph % (Auto) 30.1 % (13-45) 03/14/19 13:45 [place] % (Auto) 9.6 % (3-13) 03/14/19 13:45 Eos % (Auto) 0.5 % (0-6) 03/14/19 13:45 Baso % (Auto) 1.5 % (0-2) 03/14/19 13:45 Absolute Neuts (auto) 4.7 10^3/uL (1.7-8.2) 03/14/19 13:45 Absolute Lymphs (auto) 2.4 10^3/uL (0.5-4.7) 03/14/19 13:45 Absolute Monos (auto) 0.8 10^3/uL (0.1-1.4) 03/14/19 13:45 Absolute Eos (auto) 0.0 10^3/uL (0.0-0.6) 03/14/19 13:45 Absolute Basos (auto) 0.1 10^3/uL (0.0-0.2) 03/14/19 13:45 Seg Neutrophils % 58.3 % (42-78) 03/14/19 13:45 Sodium 135.2 mmol/L (137-145) L 03/14/19 13:45 Potassium 4.5 mmol/L (3.6-5.0) 03/14/19 13:45 Chloride 97 mmol/L (98-107) L 03/14/19 13:45 Carbon Dioxide 23 mmol/L (22-30) 03/14/19 13:45 Anion Gap 15 (5-19) 03/14/19 13:45 BUN 21 mg/dL (7-20) H 03/14/19 13:45 Creatinine 1.27 mg/dL (0.52-1.25) H 03/14/19 13:45 Est GFR ( Amer) > 60 (>60) 03/14/19 13:45 Est GFR (MDRD) Non-Af > 60 (>60) 03/14/19 13:45 Glucose 90 mg/dL (75-110) 03/14/19 13:45 Calcium 10.3 mg/dL (8.4-10.2) H 03/14/19 13:45 Total Bilirubin 1.3 mg/dL (0.2-1.3) 03/15/19 09:54 Direct Bilirubin 0.7 mg/dL (0.0-0.4) H 03/15/19 09:54 Neonat Total Bilirubin Not Reportable 03/15/19 09:54 Neonat Direct Bilirubin Not Reportable 03/15/19 09:54 Neonat Indirect Bili Not Reportable 03/15/19 09:54 AST 164 U/L (17-59) H 03/15/19 09:54 ALT 115 U/L (<50) 03/15/19 09:54 Alkaline Phosphatase 87 U/L (38-126) 03/15/19 09:54 Total Protein 6.5 g/dL (6.3-8.2) 03/15/19 09:54 Albumin 3.6 g/dL (3.5-5.0) 03/15/19 09:54 Lipase 134.8 U/L (23-300) 03/14/19 13:45 Urine Color YELLOW 03/14/19 15:20 Urine Appearance CLEAR 03/14/19 15:20 Urine pH 7.0 (5.0-9.0) 03/14/19 15:20 Ur Specific [place] 1.024 03/14/19 15:20 Urine Protein 100 mg/dL (NEGATIVE) H 03/14/19 15:20 Urine Glucose (UA) NEGATIVE mg/dL (NEGATIVE) 03/14/19 15:20 Urine Ketones NEGATIVE mg/dL (NEGATIVE) 03/14/19 15:20 Urine Blood NEGATIVE (NEGATIVE) 03/14/19 15:20 Urine Nitrite (Reflex) NEGATIVE (NEGATIVE) 03/14/19 15:20 Urine Bilirubin NEGATIVE (NEGATIVE) 03/14/19 15:20 Urine Urobilinogen NEGATIVE mg/dL (<2.0) 03/14/19 15:20 Leukocyte Esterase Rfl NEGATIVE (NEGATIVE) 03/14/19 15:20 Urine RBC (Auto) 2 /HPF 03/14/19 15:20 Urine WBC (Reflex) 1 /HPF 03/14/19 15:20 Urine Mucus (Auto) RARE /LPF 03/14/19 15:20 Urine Ascorbic Acid NEGATIVE (NEGATIVE) 03/14/19 15:20 Impressions: Cholangiogram 03/14/19 00:00 IMPRESSION: INTRAOPERATIVE CHOLANGIOGRAM. Fluoroscopy 03/14/19 00:00 IMPRESSION: INTRAOPERATIVE CHOLANGIOGRAM. Abdomen Ultrasound 03/14/19 13:09 IMPRESSION: NORMAL RIGHT UPPER QUADRANT ULTRASOUND VISUALIZED.
[2019-03-15 12:58] VITALS: BP 123/90
[2019-03-15] MEDS ORDERED: CARVEDILOL 6.25 MG TABLET PO SCH (22:00)
== END 2019-03-15 13:00 | disposition home or self-care (01) ==
LOC: ER 12:40 → INTOOBSV 15:48 → EH 15:48 → 5 19:48
PROVIDERS: ATTEND Surgery
DX: K81.1 Chronic cholecystitis (principal); F10.10 Alcohol abuse, uncomplicated; F17.200 Nicotine dependence, unspecified, uncomplicated; F41.9 Anxiety disorder, unspecified; E86.0 Dehydration; F32.9 Major depressive disorder, single episode, unspecified; I10 Essential (primary) hypertension; N17.9 Acute kidney failure, unspecified; M62.81 Muscle weakness (generalized); R05 Cough; R00.0 Tachycardia, unspecified; R94.5 Abnormal results of liver function studies; R63.4 Abnormal weight loss; R79.89 Other specified abnormal findings of blood chemistry; Z83.79 Family history of other diseases of the digestive system
CPT/HCPCS: 47563; 99285; 96361; 96374; 36415 ×2; 83690; 85025; 80076; 80053; 81001; 88304 ×2; 74300; 76705; 00790; G0378 ×3; J2250; J3490 ×4; J1100; J1885 ×3; J3010; J0295 ×3; J0360; J3475; J2175; J2765; J2270; J2710; J1170; J2060; J3480; J0330; J3411; J2405; J7050 ×2; J7030 ×2; J2704; J0131 ×2; 790

== ENCOUNTER 2019-12-22 10:17 | Emergency (ER) | payer SELFPAY ==
[2019-12-22] MEDS ORDERED: FAMOTIDINE INJ/PF 20 MG/2 ML SDV IV ONE (10:35)
[2019-12-22] MEDS ORDERED: NORMAL SALINE 1000 ML 1,000 ML IV ONE (10:35)
--- NOTE | 2019-12-22 10:38 | ER Document Report ---
ED General - General Chief Complaint: Cough Stated Complaint: COUGH/VOMITING/AB PAIN/FEVERISH/CHILLS/DIAHERRA Time Seen by Provider: 12/22/19 10:26 Primary Care Provider: MORALES VINCENT MD [ACTIVE STAFF] - Follow up as needed Mode of Arrival: Ambulatory Information source: Patient Notes: 29-year-old male patient reports 4-day history of abdominal pain, chills, cough, shortness of breath. Today he states he vomited x1. He reports history of cholecystectomy earlier this year, states after he vomited today he now has severe right upper quadrant pain similar to when he had a gallbladder attack. He does have multiple roommates positive for Covid. Denies any loss of taste or smell. TRAVEL OUTSIDE OF THE [place] IN LAST 30 DAYS: No - Related Data Allergies/Adverse Reactions: naproxen [From Naprosyn] Allergy (Verified 12/22/19 10:26) Past Medical History - General Information source: Patient - Social History Smoking Status: Current Every Day Smoker Chew tobacco use (# tins/day): No Frequency of alcohol use: Occasional Drug Abuse: Marijuana Family History: None, Reviewed & Not Pertinent, Other - Gallbladder disease in father - Past Medical History Cardiac Medical History: Reports: Hx Hypertension Renal/ Medical History: Denies: Hx Peritoneal Dialysis Past Surgical History: Reports: Hx Cholecystectomy, Hx Tonsillectomy Review of Systems - Review of Systems Constitutional: See HPI EENT: See HPI Respiratory: See HPI Gastrointestinal: See HPI -: Yes All other systems reviewed and negative Physical Exam - Vital signs Vitals: Temp Pulse Resp BP Pulse Ox 98.0 F 105 H 16 125/99 H 93 12/22/19 10:25 12/22/19 10:25 12/22/19 10:25 12/22/19 10:25 12/22/19 10:25 - Notes Notes: PHYSICAL EXAMINATION: GENERAL: Well-appearing, well-nourished and in no acute distress. HEAD: Atraumatic, normocephalic. EYES: Pupils equal round and reactive to light, extraocular movements intact, sclera anicteric, conjunctiva are normal. ENT: Nares patent, oropharynx clear without exudates. Moist mucous membranes. NECK: Normal range of motion, supple without lymphadenopathy LUNGS: Breath sounds clear to auscultation bilaterally and equal. No wheezes rales or rhonchi. HEART: Regular rate and rhythm without murmurs ABDOMEN: Soft, nondistended abdomen. Mild epigastric tenderness and right upper quadrant tenderness. No guarding, no rebound. No masses appreciated. Musculoskeletal: Normal range of motion, no pitting or edema. No cyanosis. NEUROLOGICAL: Cranial nerves grossly intact. Normal speech, normal gait. Normal sensory, motor exams PSYCH: Normal mood, normal affect. SKIN: Warm, Dry, normal turgor, no rashes or lesions noted. Course - Vital Signs Vital signs: Temp Pulse Resp BP Pulse Ox 98.4 F 94 18 128/84 H 100 12/22/19 13:08 12/22/19 13:08 12/22/19 13:08 12/22/19 13:08 12/22/19 13:08 - Laboratory Result Diagrams: 12/22/19 10:52 12/22/19 10:52 Laboratory results interpreted by me: 12/22/19 12/22/19 10:52 11:17 BUN 23 H Glucose 144 H COVID-19 ([facility]) DETECTED A Discharge - Discharge Clinical Impression: Viral illness, Encounter for laboratory testing for COVID-19 virus Abdominal pain Qualifiers: Abdominal location: right upper quadrant Qualified Code(s): R10.11 - Right upper quadrant pain Condition: Stable Disposition: HOME, SELF-CARE Additional Instructions: If you were prescribed medications during today's visit please take them exactly as prescribed. Push fluids. Get plenty of rest. Tylenol or Motrin for fever and body aches. Self quarantine until you have received your Covid test results then follow the direction of the health department. Good handwashing and stay away from others. Consider following up with gastroenterology. Their phone number is below. Return to the emergency department with any new or worsening symptoms such as difficulty breathing, or any other worsening symptoms. Prescriptions: Dicyclomine HCl [Bentyl 20 mg Tablet] 20 mg PO QID #40 tablet Famotidine [Pepcid 20 mg Tablet] 20 mg PO BID #20 tablet Forms: Return to Work Referrals: MORALES VINCENT MD [ACTIVE STAFF] - Follow up as needed
[2019-12-22 11:10] LABS: ABSOLUTE BASOPHILS # (AUTO) 0.1 10^3/uL (0.0-0.2); ABSOLUTE EOSINOPHILS # (AUTO) 0.1 10^3/uL (0.0-0.6); ABSOLUTE LYMPHOCYTES (AUTO) 2.5 10^3/uL (0.5-4.7); ABSOLUTE MONOCYTES (AUTO) 0.7 10^3/uL (0.1-1.4); ABSOLUTE NEUT (AUTO) 4.9 10^3/uL (1.7-8.2); EOSINOPHILS % (AUTO) 0.9 % (0-6); HEMATOCRIT 44.7 % (37.9-51.0); HEMOGLOBIN 15.4 g/dL (13.5-17.0); LYMPHOCYTES % (AUTO) 30.6 % (13-45); MEAN CORPUSCULAR HEMOGLOBIN 31.2 pg (27.0-33.4); MEAN CORPUSCULAR HGB CONC 34.6 g/dL (32.0-36.0); MEAN CORPUSCULAR VOLUME 90 fl (80-97); MONOCYTES % (AUTO) 8.5 % (3-13); PLATELET COUNT 331 10^3/uL (150-450); RED BLOOD COUNT 4.95 10^6/uL (4.35-5.55); RED CELL DISTRIBUTION WIDTH 13.9 % (11.5-14.0); TOTAL CELLS COUNTED % (AUTO) 100 %; WHITE BLOOD COUNT 8.3 10^3/uL (4.0-10.5)
[2019-12-22 11:30] LABS: ALBUMIN 4.7 g/dL (3.5-5.0); ALKALINE PHOSPHATASE 91 U/L (38-126); ANION GAP 12 (5-19); ASPARTATE AMINO TRANSFERASE 51 U/L (17-59); BILIRUBIN,DIRECT 0.3 mg/dL (0.0-0.4); BILIRUBIN,TOTAL 0.9 mg/dL (0.2-1.3); BLOOD UREA NITROGEN 23 mg/dL (7-20); CALCIUM 9.3 mg/dL (8.4-10.2); CARBON DIOXIDE 24 mmol/L (22-30); CHLORIDE 106 mmol/L (98-107); GLUCOSE 144 mg/dL (75-110); POTASSIUM 4.5 mmol/L (3.6-5.0); TOTAL PROTEIN 7.4 g/dL (6.3-8.2)
[2019-12-22 11:33] LABS: APPEARANCE,URINE CLEAR; BILIRUBIN,URINE NEGATIVE (NEGATIVE); COLOR,URINE YELLOW; GLUCOSE, URINE NEGATIVE (NEGATIVE); KETONES,URINE NEGATIVE (NEGATIVE); LEUKOCYTE ESTERASE,URINE NEGATIVE (NEGATIVE); NITRITE,URINE NEGATIVE (NEGATIVE); PROTEIN,URINE NEGATIVE (NEGATIVE); URINE SPECIFIC GRAVITY 1.025; UROBILINOGEN,URINE NEGATIVE mg/dL (<2.0)
[2019-12-22] MEDS ORDERED: DICYCLOMINE HCL INJ 20 MG/2 ML AMPULE IM ONE (11:54)
[2019-12-22 11:55] LABS: A TYPE INFLUENZA AG NEGATIVE (NEGATIVE); B INFLUENZA AG NEGATIVE (NEGATIVE)
[2019-12-22 13:11] VITALS: BP 128/84
== END 2019-12-22 13:08 | disposition home or self-care (01) ==
LOC: ER 10:17
DX: U07.1 COVID-19 (principal); R10.11 Right upper quadrant pain; R10.816 Epigastric abdominal tenderness; R10.811 Right upper quadrant abdominal tenderness; R05 Cough; R06.02 Shortness of breath; R11.10 Vomiting, unspecified; R68.83 Chills (without fever); I10 Essential (primary) hypertension; F17.200 Nicotine dependence, unspecified, uncomplicated; F12.10 Cannabis abuse, uncomplicated; Z90.49 Acquired absence of other specified parts of digestive tract
CPT/HCPCS: 99284; 96361; 96374; 36415; 83690; 85025; 87635; 80053; 81001; 87804; J7030; S0028; C9803